=== PATIENT | female | born 1945 | race Caucasian/White ===

== ENCOUNTER 2018-05-25 09:36 | Observation (INO) | payer BC ==
[2018-05-25 10:06] LABS: ADD MAN DIFF? NO
[2018-05-25 10:12] LABS: BASO # 0.1 x10^3/uL (0.0-0.2); BASO % 1 % (0-3); EOS # 0.3 x10^3/uL (0.0-0.7); EOS % 5 % (0-3); HEMATOCRIT 40.9 % (36.0-47.0); HEMOGLOBIN 13.9 g/dL (12.0-15.5); LYMPH # 1.7 x10^3/uL (1.0-4.8); LYMPH % 29 % (24-48); MEAN CORPUSCULAR HEMOGLOBIN 30 pg (25-35); MEAN CORPUSCULAR HGB CONC 34 g/dL (31-37); MEAN CORPUSCULAR VOLUME 87 fL (79-100); MONO # 0.6 x10^3/uL (0.0-1.1); MONO % 11 % (0-9); NEUT # 3.1 x10^3uL (1.8-7.7); NEUT % 54 % (31-73); PLATELET COUNT 272 x10^3/uL (140-400); RED BLOOD COUNT 4.72 x10^6/uL (3.50-5.40); RED CELL DISTRIBUTION WIDTH 13.4 % (11.5-14.5); WHITE BLOOD COUNT 5.7 x10^3/uL (4.0-11.0)
[2018-05-25 10:17] LABS: ANION GAP 10 (6-14); BLOOD UREA NITROGEN 22 mg/dL (7-20); BUN/CREATININE RATIO 22 (6-20); CALCIUM 9.6 mg/dL (8.5-10.1); CARBON DIOXIDE 27 mmol/L (21-32); CHLORIDE 102 mmol/L (98-107); GFR 54.8; GLUCOSE 114 mg/dL (70-99); POTASSIUM 3.5 mmol/L (3.5-5.1); SODIUM 139 mmol/L (136-145)
[2018-05-25 10:18] LABS: PROTHROMBIN TIME PATIENT 12.2 SEC (11.7-14.0)
[2018-05-25] MEDS: NITROGLYCERIN SUBLINGUAL 0.4 MG BOTTLE OF 25. SL (10:20)
[2018-05-25] MEDS: ASPIRIN CHEWABLE 81 MG TABLET. PO (10:20)
[2018-05-25 10:22] LABS: ALBUMIN 3.7 g/dL (3.4-5.0); ALBUMIN/GLOBULIN RATIO 0.9 (1.0-1.7); ALK PHOS 100 U/L (46-116); ALT (SGPT) 30 U/L (14-59); AST (SGOT) 26 U/L (15-37); TOTAL BILIRUBIN 0.8 mg/dL (0.2-1.0); TOTAL PROTEIN 7.6 g/dL (6.4-8.2)
[2018-05-25 10:27] LABS: TROPONINI < 0.017 ng/mL (0.000-0.055)
[2018-05-25 10:28] LABS: NT-PRO BNP 191 pg/mL (0-124)
[2018-05-25] MEDS ORDERED: CONTRAST GIVEN. MC (11:15)
[2018-05-25] MEDS ORDERED: IOHEXOL 300 MG/ML 100ML VIAL. IV (11:15)
[2018-05-25] MEDS: DOXYCYCLINE HYCLATE 100 MG TABLET PO (12:30)
[2018-05-25 14:34] LABS: CHOLESTEROL 184 mg/dL (0-200); HDLC 57 mg/dL (40-60); LDLC 100 mg/dL (0-100); NON-HDL CHOLESTEROL 127 mg/dL (0-129); TRIGLYCERIDES 134 mg/dL (0-150); VLDLC 27 mg/dL (0-40)
[2018-05-25 14:35] LABS: CHOLESTEROL/HDL RATIO 3.2
[2018-05-25 15:20] LABS: TROPONINI < 0.017 ng/mL (0.000-0.055)
[2018-05-25 18:39] LABS: TROPONINI < 0.017 ng/mL (0.000-0.055)
[2018-05-25] MEDS ORDERED: [UNRECOGNIZED DRUG - OTHER] PO (21:00)
[2018-05-25] MEDS: CHOLECALCIFEROL (VITAMIN D3) 1,000 UNIT TABLET PO (21:03)
[2018-05-25] MEDS: ASPIRIN ENTERIC COATED 81 MG TABLET.DR. PO (21:04)
[2018-05-25] MEDS: METOPROLOL SUCC 24HR ER 100 MG TAB.ER.24H. PO (21:04)
[2018-05-25] MEDS: hydroCHLOROthiazide 25 MG TABLET PO (21:43)
[2018-05-25] MEDS: LISINOPRIL 20 MG TABLET PO (21:44)
[2018-05-25] MEDS: ZOLPIDEM 5 MG TABLET. PO (23:51)
[2018-05-26] MEDS: PANTOPRAZOLE 40 MG TABLET.DR. PO (07:30)
[2018-05-26] MEDS: CALCIUM CARBONATE 500 MG TAB.CHEW PO (08:06)
== END 2018-05-26 11:30 | disposition home or self-care (01) ==
LOC: ER 09:36 → 5 NORTH 12:05
DX: R07.9 Chest pain, unspecified (principal); I10 Essential (primary) hypertension; M85.80 Other specified disorders of bone density and structure, unspecified site; R91.1 Solitary pulmonary nodule; Z82.49 Family history of ischemic heart disease and other diseases of the circulatory system; Z79.82 Long term (current) use of aspirin
CPT/HCPCS: 36415; 71045; 71275; 76700; 80053; 80061; 83880; 84484; 85025; 85379; 85610; 93005; 93017; 93350; 96365; 96375; 99285-25; G0378; G0379

== ENCOUNTER → 2018-05-30 | Outpatient (CLI) | payer BC | END | disposition home or self-care (01) | LOC: NM 09:24 | DX: R07.9 Chest pain, unspecified (principal); I10 Essential (primary) hypertension; Z79.82 Long term (current) use of aspirin | CPT/HCPCS: 78452; 93017; 96374; 96375; 96376; A9500 ==

== ENCOUNTER → 2019-05-14 | Outpatient (CLI) | payer BC ==
[2018-05-26 07:00] VITALS: BP 127/53
[~2019-05-14] MED LIST: ANTI1CAP5 PO; ASPI-612 PO; CALC600T4 PO; CHOL400C2 PO; ESTR30CR VG; LISI1TAB7 PO; METO-247 PO
--- NOTE | 2019-05-14 09:18 | RAD ---
CT CHEST WO CONTRAST Indication: Pulmonary nodules Technique: Noncontrast CT imaging was performed of the chest, multiplanar reconstruction images submitted. One or more of the following individualized dose reduction techniques were utilized for this examination: 1. Automated exposure control 2. Adjustment of the mA and/or kV according to patient size 3. Use of iterative reconstruction technique. Comparison: May 25, 2018 Findings: Pleural parenchymal fibrotic change of the lung apices left greater than right is unchanged. There is no new infiltrate, pleural or pericardial effusion, pneumothorax. There are some small noncalcified pulmonary nodules which are overall unchanged as follows as measured on axial series 2: 3 mm right upper lobe image 31, 3-4 mm right middle lobe near minor fissure image 32, 3-4 mm right middle lobe image 38, 2-3 mm left lower lobe image 55, 4-5 mm left lower lobe image 47, 2 mm left lower lobe image 41, 1-2 mm left lower lobe image 42, 2-3 mm left upper lobe image 15, 1-2 mm right lower lobe image 25, 1-2 mm right lower lobe image 29. No new pulmonary nodularity is identified. No new significantly enlarged nodes are identified of the chest. There are fat-containing Bochdalek hernias bilaterally. 7 mm hypodense lesion of the lateral left lobe liver is unchanged, likely a cyst with density measurements 15 Hounsfield units. There are again some calcified left hilar and medial subtle nodes. There are likely hemangiomas most notable of T11 and T10 also likely at T5 and C7. IMPRESSION: 1. Previously seen small pulmonary nodules are unchanged, no new pulmonary nodularity. If considered increased risk factors for neoplasm, 12 month follow-up could be obtained, otherwise no additional follow-up needed as per revised Fleischner guidelines for nodules of this size. Electronically signed by: Adin Ram MD (05/14/2019 9:15 AM) [email or web address]
== END | disposition home or self-care (01) ==
LOC: CT 07:43
PROVIDERS: ATTEND Family Medicine
DX: R91.8 Other nonspecific abnormal finding of lung field (principal); R91.1 Solitary pulmonary nodule; J84.10 Pulmonary fibrosis, unspecified; J98.4 Other disorders of lung
CPT/HCPCS: 71250

== ENCOUNTER → 2020-09-17 | Outpatient (CLI) | payer BC ==
[2018-05-26 07:00] VITALS: BP 127/53
[~2020-09-17] MED LIST changes: -ASPI-612 PO; +ASPI-886 PO; -CALC600T4 PO; +CALC600T6 PO; +LISI1TAB20 PO; -LISI1TAB7 PO
--- NOTE | 2020-09-17 11:37 | CARD ---
MR#: [id number] Date of Study: 09/17/2020 Ordering Physician: GRANT HOLLAND, Referring Physician: GRANT HOLLAND, Tech: Celia Bone [facility] APPROVED REPORT EXAM: Two-dimensional and M-mode echocardiogram with Doppler and color Doppler. Other Information Quality : Fair Rhythm : PVC's INDICATION Murmur 2D DIMENSIONS RVDd2.1 (2.9-3.5cm)Left Atrium(2D)2.4 (1.6-4.0cm) IVSd0.8 (0.7-1.1cm)Aortic Root(2D)2.7 (2.0-3.7cm) LVDd4.3 (3.9-5.9cm)LVOT Diameter1.9 (1.8-2.4cm) PWd0.8 (0.7-1.1cm)LVDs3.2 (2.5-4.0cm) FS (%) 25.5 %SV42.2 ml LVEF(%)50.5 (>50%) Aortic Valve AoV Peak Gianni.121.6cm/sAoV VTI29.5cm AO Peak GR.5.9mmHgLVOT Peak Gianni.119.6cm/s AO Mean GR.3mmHgAVA (VMAX)2.79cm2 ANJUM (VTI)3.00cm2 Mitral Valve MV E Hjopwaab562.9cm/sMV DECEL NOEZ888or MV A Kohqbzxv455.5cm/sE/A Ratio0.9 Tricuspid Valve TR P. Ouvmbsgq499dl/sRAP WFQVWHRI0imWq TR Peak Gr.93wyVnIZZX45tsJi Pulmonary Vein S1 Gxecwliy65.1cm/sD2 Fehucbxo06.0cm/s LEFT VENTRICLE The left ventricle is normal size. There is normal left ventricular wall thickness. Left ventricle sy stolic function is low normal. The Ejection Fraction is 50-55%. There is normal LV segmental wall mot ion. Transmitral Doppler flow pattern is Grade I-abnormal relaxation pattern. RIGHT VENTRICLE The right ventricle is normal size. The right ventricular systolic function is normal. ATRIA The left atrium size is normal. The right atrium size is normal. The interatrial septum is intact wit h no evidence for an atrial septal defect or patent foramen ovale as noted on 2-D or Doppler imaging. AORTIC VALVE Not well visualized. Doppler and Color Flow revealed no significant aortic regurgitation. There is no significant aortic valvular stenosis. MITRAL VALVE The mitral valve is normal in structure and function. There is no evidence of mitral valve prolapse. There is no mitral valve stenosis. Doppler and Color Flow revealed no mitral valve regurgitation note d. TRICUSPID VALVE The tricuspid valve is normal in structure and function. Doppler and Color Flow revealed mild tricusp id regurgitation. RVSP 31 mm Hg. There is no tricuspid valve prolapse or vegetation. There is no tric uspid valve stenosis. PULMONIC VALVE Not well visualized. GREAT VESSELS The aortic root is normal in size. The IVC is normal in size and collapses >50% with inspiration. PERICARDIAL EFFUSION There is no evidence of significant pericardial effusion. Critical Notification Critical Value: No <Conclusion> Left ventricle systolic function is low normal. The Ejection Fraction is 50-55%. There is normal LV segmental wall motion. Doppler and Color Flow revealed mild tricuspid regurgitation. RVSP 31 mm Hg. Signed by : Benny Peterson, Electronically Approved : 09/17/2020 11:36:48
== END ==
LOC: ECHO 08:43
PROVIDERS: ATTEND Internal Medicine Cardiovascular Disease
DX: I07.1 Rheumatic tricuspid insufficiency (principal)
CPT/HCPCS: 93306